=== PATIENT | male | born 1970 | race Caucasian/White ===

== ENCOUNTER → 2021-11-27 | Outpatient (CLI) | payer OTHER ==
[2014-08-14 11:05] VITALS: BP 154/86
[~2021-11-27] MED LIST: REGADENOSON 0.4 MG/5 ML DISP.SYRIN. IV ONE
--- NOTE | 2021-11-28 10:19 | CARD ---
MR#: [id number] Date of Study: 11/27/2021 Ordering Physician: BONITA JOHNSON, Referring Physician: BONITA JOHNSON Tech: Tonia Davidson [facility] APPROVED REPORT EXAM: Two-dimensional and M-mode echocardiogram with Doppler and color Doppler. Other Information Quality : AverageHR: 78bpm Rhythm : NSR INDICATION Dyspnea RISK FACTORS Hypertension Obesity 2D DIMENSIONS RVDd2.7 (2.9-3.5cm)Left Atrium(2D)3.5 (1.6-4.0cm) IVSd0.9 (0.7-1.1cm)Aortic Root(2D)2.9 (2.0-3.7cm) LVDd4.1 (3.9-5.9cm)LVOT Diameter1.8 (1.8-2.4cm) PWd1.0 (0.7-1.1cm)LVDs2.7 (2.5-4.0cm) FS (%) 34.1 %SV46.7 ml LVEF(%)63.5 (>50%) Aortic Valve AoV Peak Johnson.125.4cm/sAoV VTI26.0cm AO Peak GR.6.3mmHgLVOT Peak Johnson.112.2cm/s AO Mean GR.3mmHgAVA (VMAX)2.39cm2 Mitral Valve MV E Brxntait65.6cm/sMV DECEL [id number] MV A Gkirynhj78.8cm/sE/A Ratio1.0 Pulmonary Valve PV Peak Pxqyjaqw103.0cm/s Tricuspid Valve TR P. Pdxlpvff920sz/sTR Peak Gr.22mmHg LEFT VENTRICLE The left ventricle is normal size. There is normal left ventricular wall thickness. The left ventricu lar systolic function is normal and the ejection fraction is within normal range. Estimated ejection fraction 50-55%. There is normal LV segmental wall motion. Tissue Doppler imaging reveals mild left v entricular diastolic dysfunction. RIGHT VENTRICLE The right ventricle is normal size. There is normal right ventricular wall thickness. The right ventr icular systolic function is normal. ATRIA The left atrium size is normal. The right atrium size is normal. The interatrial septum is intact wit h no evidence for an atrial septal defect or patent foramen ovale as noted on 2-D or Doppler imaging. AORTIC VALVE The aortic valve is normal in structure and function. Doppler and Color Flow revealed trace aortic re gurgitation. There is no significant aortic valvular stenosis. MITRAL VALVE The mitral valve is normal in structure and function. There is no evidence of mitral valve prolapse. There is no mitral valve stenosis. Doppler and Color Flow revealed no mitral valve regurgitation note d. TRICUSPID VALVE The tricuspid valve is normal in structure and function. Doppler and Color Flow revealed trace tricus pid regurgitation. Estimated PAP 25 mmHg. There is no tricuspid valve stenosis. PULMONIC VALVE Doppler and Color Flow revealed mild pulmonic valvular regurgitation. There is no pulmonic valvular s tenosis. GREAT VESSELS The aortic root is normal in size. The ascending aorta is normal in size. The IVC is normal in size a nd collapses >50% with inspiration. PERICARDIAL EFFUSION There is no evidence of significant pericardial effusion. Critical Notification Critical Value: No <Conclusion> The left ventricular systolic function is normal and the ejection fraction is within normal range. E stimated ejection fraction 50-55%. There is normal LV segmental wall motion. Signed by : Jorge Caraballo, Electronically Approved : 11/28/2021 10:19:26
--- NOTE | 2021-11-28 11:26 | RAD ---
MR#: [id number] Date of Study: 11/27/2021 Ordering Physician: BONITA JOHNSON, Referring Physician: JENNIFER FORMAN Tech: RT Iwona Benavidez) (N) APPROVED REPORT Test Type: Pharmacological Stress Nurse/Tech: Kinza Omer RN Test Indications: Dyspnea on exertion Cardiac History: Hypertension Medications: See Electronic Medical Record Medical History: See Electronic Medical Record Resting ECG: SR Resting Heart Rate: 77 bpm Resting Blood Pressure: 146/87mmHg Pretest Chest Pain: No chest pain Nurse/Tech Notes S1,S2 and lungs clear to auscultation. Consent: The procedure was explained to the patient in lay terms. Informed consent was witnessed. Rehan eout was entered into [employer]. History and Stress Test performed by RT Iwona Benavidez) (N) Pharm. Details Pharmacologic stress testing was performed using 0.4mg per 5ml of regadenoson given intravenously ove r 7-10 seconds. Stress Symptoms Dyspnea POST EXERCISE Reason for Termination: Infusion complete Target HR: Yes Max HR: 141 bpm 99% of Maximum Predicted HR: 142 bpm Max Blood Pressure: 169/81mmHg Blood Pressure response to exercise: Normal blood pressure response during stress. Heart Rate response to exercise: WNL Chest Pain: No. Arrhythmia: No. ST Change: No. INTERPRETATION Stress EKG Conclusion: No evidence of stress induced EKG changes. Imaging Protocol IMAGE PROTOCOL: Rest Tc-99m/stress Tc-99m 1 day Rest: Stress: Viability: Radiopharm.Tc99m XygowesbyQu58x Sestamibi Dose9.5mCi 31.2mCi Duration 15min. 10min. Img Date 11/27/2021 11/27/2021 Inj-Img [id number]. 60min. Rest Admin Site:IV - Right AntecubitalAdministrator:CHRISTY Abel, ARRT (R)(N) Stress Admin Site: IV - Right AntecubitalAdministrator: CHRISTY Abel, ARRT (R)(N) STRESS DATA End Diast. Vol.60.0mlAv. Heart Rate94.0bpm End Syst. Vol.8.0mlCO Index BSA0.0L/min Myocardial Jiij472.0gEject. Swgszubh46.0% Stress Rates Pk. Fill Rate3.51EDV/secLVtime Pk. Fill 157.28msec Pk. Empty Rate4.35ESV/secLVtime Pk. Eject83.30msec 1/3 Pk. Fill1.64EDV/sec Stress Scores Regional WT1.00Summed WT2.00 Regional WM0.00Summed WM2.00 The rest and stress images show normal perfusion, normal contraction and thickening. LV Perf. Quant 17 Seg. SSS0.00 17 Seg. SRS0.00 17 Seg. SDS0.00 Stress Defect Extent (% LAD)0.00Rest Defect Extent (% LAD)0.00Rev. Defect Extent (% LAD)0.00 Stress Defect Extent (% LCX) 0.00Rest Defect Extent (% LCX)0.00Rev. Defect Extent (% LCX)0.00 Stress Defect Extent (% RCA)0.00Rest Defect Extent (% RCA)0.00Rev. Defect Extent (% RCA)0.00 Stress Defect Extent (% SHMUEL)0.00Rest Defect Extent (% SHMUEL)0.00Rev. Defect Extent (% SHMUEL)0.00 Other Information Quality:Average Risk Assessment: Low Risk Conclusion 1. No evidence of EKG changes with stress testing. 2. Normal perfusion at stress/rest. 3. Low risk study. 4. EF > 60%. Signed by : Jorge Caraballo, Electronically Approved : 11/28/2021 11:25:49
== END ==
LOC: NM 07:51
PROVIDERS: ATTEND Internal Medicine Cardiovascular Disease
DX: I37.1 Nonrheumatic pulmonary valve insufficiency (principal); R06.00 Dyspnea, unspecified
CPT/HCPCS: 78452; 93017; 93306; A9500; J2785; C8929